=== PATIENT | female | born 1950 | race Caucasian/White ===

== ENCOUNTER 2022-02-03 15:57 | Emergency (ER) | payer BC | END 2022-02-03 17:14 | disposition home or self-care (01) | LOC: BURERS 15:57 | DX: S52.571A Other intraarticular fracture of lower end of right radius, initial encounter for closed fracture (principal); I10 Essential (primary) hypertension; E03.9 Hypothyroidism, unspecified; W19.XXXA Unspecified fall, initial encounter; W22.8XXA Striking against or struck by other objects, initial encounter | CPT/HCPCS: 29125 ==